=== PATIENT | male | born 1970 | race American Indian/Alaskan Native ===

== ENCOUNTER 2016-11-01 13:12 | Emergency (ER) | payer OTHER ==
[2016-11-01 13:13] VITALS: BMI 23.3
[2016-11-01 13:20] VITALS: BP 144/83; PULSE 68; RESP 18; TEMP 98.7; O2SAT 99
[2016-11-01] MEDS ORDERED: Lidocaine 1% Inj (20ml) ONE (13:42)
[2016-11-01] MEDS ORDERED: Lidocaine 2% w Epi 1:100,000 Inj IJ STA (13:52)
[2016-11-01] MEDS ORDERED: Lidocaine 1% (10 ml) Inj INFIL STA (13:52)
--- NOTE | 2016-11-01 14:34 | ED PDOC ---
HPI: Skin/Bite Injury Time Seen by Provider: 11/01/16 13:19 Chief Complaint (Nursing): Abnormal Skin Integrity Chief Complaint (Provider): Right eyebrow laceration - Punched in face History Per: Patient History/Exam Limitations: no limitations Onset/Duration Of Symptoms: Mins Current Symptoms Are (Timing): Still Present Quality Of Symptoms: Painful Severity: Mild Pain Scale Rating Of: 2 Additional Complaint(s): No LOC. No N/V. Tetanus 11/2015 Past Medical History Reviewed: Historical Data, Nursing Documentation, Vital Signs Vital Signs: Last Vital Signs Temp 98.7 F 11/01/16 13:17 Pulse 68 11/01/16 13:17 Resp 18 11/01/16 13:17 BP 144/83 11/01/16 13:17 Pulse Ox 99 11/01/16 13:17 - Medical History PMH: Anxiety, Arthritis Denies: HIV, Chronic Kidney Disease - Surgical History Surgical History: No Surg Hx - Family History Family History: States: Unknown Family Hx - Living Arrangements Living Arrangements: With Family - Social History Current smoker - smoking cessation education provided: No Alcohol: Occasional Drugs: Opiates, Prescription medications (Benzos) - Immunization History Hx Tetanus Toxoid Vaccination: No - Home Medications Home Medications: Ambulatory Orders Medication Instructions Recorded Naproxen [Naprosyn] 1 tab PO BID PRN #60 tab 11/20/15 traMADol [Ultram] 25 mg PO BID PRN #10 tab 11/20/15 - Allergies Allergies/Adverse Reactions: Allergies Allergy/AdvReac Type Severity Reaction Status Date / Time No Known Allergies Allergy Verified 11/23/15 11:34 Review of Systems ROS Statement: Except As Marked, All Systems Reviewed And Found Negative Constitutional: Negative for: Fever, Chills Skin: Positive for: Other (Left eyebrow laceration) Psych: Positive for: Anxiety. Negative for: Depression, Psychosis Physical Exam - Reviewed Nursing Documentation Reviewed: Yes Vital Signs Reviewed: Yes - Physical Exam Appears: Positive for: Well, Non-toxic, No Acute Distress Head Exam: Positive for: ATRAUMATIC, NORMAL INSPECTION, NORMOCEPHALIC Skin: Positive for: Warm. Negative for: Normal Color (5cm, jagged right eyebrow ) Eye Exam: Positive for: Normal appearance, EOMI, PERRL ENT: Positive for: Normal ENT Inspection Neck: Positive for: Normal, Painless ROM Cardiovascular/Chest: Positive for: Regular Rate, Rhythm Respiratory: Positive for: CNT, Normal Breath Sounds Gastrointestinal/Abdominal: Positive for: Normal Exam, Bowel Sounds, Soft Back: Positive for: Normal Inspection Extremity: Positive for: Normal ROM Neurologic/Psych: Positive for: Alert, Oriented - ECG O2 Sat by Pulse Oximetry: 99 Pulse Ox Interpretation: Normal Medical Decision Making Medical Decision Making: Pt aslo feels anxious and states he has been taking ativan/xanax. Disposition - Clinical Impression Clinical Impression: Head injury, Eyebrow laceration, Anxiety - Disposition Disposition: Routine/Home Disposition Time: 14:37 Condition: GOOD Instructions: Care For Your Absorbable Stitches (ED) Forms: [employer] (Malay) Laceration - Laceration Repair Right eyebrow Wound Length (In cm): 5cm Description Of Wound: Linear (Jagged ) Anesthesia: Lidocaine 1% (2cc) Wound Examination: Irrigated With Saline, No FB With Wound Exploration, No Tendon Injury With Wound Exploration Suture Technique And Material Used: Interrupted (8), Vicryl Wound Complexity: Simple
== END 2016-11-01 15:19 ==
LOC: H.ER 13:12
DX: S01.112A Laceration without foreign body of left eyelid and periocular area, initial encounter (principal); S09.90XA Unspecified injury of head, initial encounter; Y04.0XXA Assault by unarmed brawl or fight, initial encounter; F41.9 Anxiety disorder, unspecified

== ENCOUNTER 2016-11-01 18:38 | Emergency (ER) | payer OTHER ==
[2016-11-01 18:38] VITALS: BMI 23.3
[2016-11-01 18:43] VITALS: RESP 18
--- NOTE | 2016-11-01 20:21 | ED PDOC ---
HPI: Headache Time Seen by Provider: 11/01/16 18:41 Chief Complaint (Nursing): Headache Chief Complaint (Provider): Headache History Per: Patient History/Exam Limitations: no limitations Onset/Duration Of Symptoms: Days (x 1) Current Symptoms Are (Timing): Still Present Additional Complaint(s): Trevor Melendez is a 46 y/o male in custody of the police, who was seen earlier today for a face laceration. Upon arriving at detention, patient began complaining of a headache and returns to the ED now. No other medical complaints. PMD: Unknown Past Medical History Reviewed: Historical Data, Nursing Documentation, Vital Signs Vital Signs: Last Vital Signs Temp 98.1 F 11/01/16 18:40 Pulse 66 11/01/16 18:40 Resp 18 11/01/16 18:40 BP 129/81 11/01/16 18:40 Pulse Ox 99 11/01/16 18:40 - Medical History PMH: Anxiety, Arthritis Denies: HIV, Chronic Kidney Disease - Family History Family History: States: Unknown Family Hx - Social History Current smoker - smoking cessation education provided: Yes (Light) Alcohol: < 2 Drinks/Day Drugs: Denies - Immunization History Hx Tetanus Toxoid Vaccination: No - Home Medications Home Medications: Ambulatory Orders Medication Instructions Recorded Naproxen [Naprosyn] 1 tab PO BID PRN #60 tab 11/20/15 traMADol [Ultram] 25 mg PO BID PRN #10 tab 11/20/15 - Allergies Allergies/Adverse Reactions: Allergies Allergy/AdvReac Type Severity Reaction Status Date / Time No Known Allergies Allergy Verified 11/23/15 11:34 Review of Systems ROS Statement: Except As Marked, All Systems Reviewed And Found Negative Neurological: Positive for: Headache, Dizziness Physical Exam - Reviewed Nursing Documentation Reviewed: Yes Vital Signs Reviewed: Yes - Physical Exam Appears: Positive for: Non-toxic, No Acute Distress Head Exam: Positive for: ATRAUMATIC, NORMAL INSPECTION, NORMOCEPHALIC Skin: Positive for: Normal Color, Warm, Dry Eye Exam: Positive for: EOMI, Normal appearance, PERRL Neck: Positive for: Normal, Painless ROM Cardiovascular/Chest: Positive for: Regular Rate, Rhythm. Negative for: Murmur Respiratory: Positive for: Normal Breath Sounds. Negative for: Respiratory Distress Gastrointestinal/Abdominal: Positive for: Normal Exam, Soft. Negative for: Tenderness Back: Positive for: Normal Inspection. Negative for: Vertebral Tenderness Extremity: Positive for: Normal ROM. Negative for: Pedal Edema, Deformity Neurologic/Psych: Positive for: Alert, Oriented - ECG O2 Sat by Pulse Oximetry: 99 (RA) Pulse Ox Interpretation: Normal Medical Decision Making Medical Decision Making: Time: 18:47 Impression: Headache Initial Plan: --CT Head w/o contrast Time: 20:00 CT Head: FINDINGS: Brain: No acute intracranial hemorrhage. No abnormal extra-axial fluid collection. No herniation. Patent basal cisterns. Preserved tellez-white matter differentiation. No evidence of acute ischemia. No evident intracranial mass. Ventricles: No hydrocephalus. Bones/joints: No evident acute fracture. Soft tissues: Right periorbital soft tissue contusion, incompletely imaged. Sinuses: The imaged paranasal sinuses are clear. Mastoid air cells: The imaged mastoid air cells are clear. IMPRESSION: 1. No acute intracranial findings. 2. Right periorbital soft tissue contusion, incompletely imaged. --Patient is medically stable and will be discharged into custody of police. Scribe Attestation: Documented by Padmini Schneider, acting as a scribe for Aislinn Cunningham PA-C Provider Scribe Attestation: All medical record entries made by the Scribe were at my direction and personally dictated by me. I have reviewed the chart and agree that the record accurately reflects my personal performance of the history, physical exam, medical decision making, and the department course for this patient. I have also personally directed, reviewed, and agree with the discharge instructions and disposition. Disposition - Clinical Impression Clinical Impression: Headache - Patient ED Disposition Is Patient to be Admitted: No Counseled Patient/Family Regarding: Studies Performed, Diagnosis - Disposition Disposition: Discharged/Transfer to Law Enforcement Disposition Time: 20:20 Condition: STABLE Additional Instructions: Pt is medically and psychiatrically stable for incarceration. Instructions: Acute Headache (ED)
[2016-11-01 20:38] VITALS: BP 130/78; PULSE 78; TEMP 98; O2SAT 98
--- NOTE | 2016-11-02 07:26 | CT ---
PROCEDURE: CT HEAD WITHOUT CONTRAST. HISTORY: head injury, dizziness COMPARISON: None available. TECHNIQUE: Axial computed tomography images were obtained through the head/brain without intravenous contrast. Radiation dose: Total exam DLP = 777.82 MGy-cm. This CT exam was performed using one or more of the following dose reduction techniques: Automated exposure control, adjustment of the mA and/or kV according to patient size, and/or use of iterative reconstruction technique. FINDINGS: HEMORRHAGE: No intracranial hemorrhage. BRAIN: Blood-white matter differentiation is preserved. There is no mass, mass effect or abnormal extra-axial fluid collection. VENTRICLES: The ventricles are normal in size, shape and configuration. CALVARIUM: There is no calvarial fracture or extracranial soft tissue swelling. Incompletely imaged is a right periorbital soft tissue hematoma. PARANASAL SINUSES: Predominantly clear. MASTOID AIR CELLS: Predominantly clear. OTHER FINDINGS: None. IMPRESSION: 1. No acute intracranial abnormality. 2. Right periorbital soft tissue hematoma, incompletely imaged. A preliminary report was provided by [email or web address] [facility].
== END 2016-11-01 20:38 ==
LOC: H.ER 18:38
DX: R51 Headache (principal)

== ENCOUNTER 2017-10-19 18:13 | Emergency (ER) | payer MEDICAID ==
[2017-10-19 18:13] VITALS: BMI 23.3
[2017-10-19 18:17] VITALS: RESP 18; TEMP 98
[2017-10-19] MEDS ORDERED: Dextrose 50% SYRINGE Inj (50 ml) ONE (18:36)
[2017-10-19] MEDS ORDERED: Sodium Chloride 0.9% 1,000 ML IV STA (19:00)
--- NOTE | 2017-10-19 19:10 | ED PDOC ---
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 As per EMS, pt was found staggering on the sidewalk with slurred speech. He admits to working overnight and has not yet slept, along with taking a trazadone for chronic back pain and drinking 3-4 beers. At this time, he offers no complaints, stating he would just like to sleep. As per old charts, pt has a hx of heroin use, but when asked if he used today, he denied. PMD: none provided Past Medical History Reviewed: Historical Data, Nursing Documentation, Vital Signs Vital Signs: Last Vital Signs Temp 98 F 10/19/17 18:15 Pulse 68 10/19/17 18:15 Resp 18 10/19/17 18:15 BP 117/63 10/19/17 18:15 Pulse Ox 98 10/19/17 18:15 - Medical History PMH: Anxiety, Arthritis Denies: Diabetes, Hepatitis, HIV, HTN, Chronic Kidney Disease, Seizures, Sexually Transmitted Disease - Surgical History Other surgeries: Yes: right knee in early - Family History Family History: States: Unknown Family Hx - Social History Current smoker - smoking cessation education provided: Yes (light) Alcohol: Social Drugs: Other (heroin) - Immunization History Hx Tetanus Toxoid Vaccination: No - Home Medications Home Medications: Ambulatory Orders Medication Instructions Recorded hydrOXYzine HCl [Atarax] 25 mg PO BID PRN #30 tab 08/15/17 traZODone [Desyrel] 50 mg PO HS PRN #30 tab 08/15/17 - Allergies Allergies/Adverse Reactions: Allergies Allergy/AdvReac Type Severity Reaction Status Date / Time No Known Allergies Allergy Verified 10/19/17 18:14 Review of Systems ROS Statement: Except As Marked, All Systems Reviewed And Found Negative Psych: Positive for: Other (etoh) Physical Exam - Reviewed Nursing Documentation Reviewed: Yes Vital Signs Reviewed: Yes - Physical Exam Appears: Positive for: No Acute Distress Head Exam: Positive for: ATRAUMATIC, NORMOCEPHALIC Skin: Positive for: Normal Color, Warm, Dry Eye Exam: Positive for: Normal appearance Neck: Positive for: Normal, Painless ROM, Supple Cardiovascular/Chest: Positive for: Regular Rate, Rhythm. Negative for: Murmur Respiratory: Positive for: Normal Breath Sounds. Negative for: Accessory Muscle Use, Respiratory Distress Gastrointestinal/Abdominal: Positive for: Normal Exam, Soft. Negative for: Tenderness Back: Positive for: Normal Inspection Extremity: Positive for: Normal ROM Neurologic/Psych: Positive for: Alert, Oriented (x3). Negative for: Motor/ Sensory Deficits - Laboratory Results Result Diagrams: 10/19/17 19:06 10/19/17 19:06 - ECG O2 Sat by Pulse Oximetry: 98 (RA) Pulse Ox Interpretation: Normal Medical Decision Making Medical Decision Making: Time: 1899 Initial Impression: etoh Initial Plan: --Alcohol serum --CMP --Drug screen --CBC with differential --Normal saline IV --Accucheck labs resulted and reviewed with Pt who is ambulating around ED on r-eval. Pt asking to go home. Pts in ED as well and reports she is comfortable with him leaving at this time to come home. Scribe Attestation: Documented by Kay Chacko, acting as a scribe for Chanelle Chiang PA-C. Provider Scribe Attestation: All medical record entries made by the Scribe were at my direction and personally dictated by me. I have reviewed the chart and agree that the record accurately reflects my personal performance of the history, physical exam, medical decision making, and the department course for this patient. I have also personally directed, reviewed, and agree with the discharge instructions and disposition. Disposition - Clinical Impression Clinical Impression: Alcohol ingestion - Patient ED Disposition Is Patient to be Admitted: No - Disposition Disposition: Routine/Home Disposition Time: 19:46 Condition: STABLE Instructions: Polysubstance Abuse Forms: [employer] (Polish)
[2017-10-19 19:11] LABS: BASO # 0.1 K/uL (0.0-0.2); BASO % 1.1 % (0.0-2.0); EOS # 0.1 K/uL (0.0-0.7); EOS % 2.5 % (0.0-4.0); HEMOGLOBIN 10.9 g/dL (12.0-18.0); LYMPH # 1.4 K/uL (1.0-4.3); LYMPH % 31.8 % (20.0-40.0); MEAN CELL VOLUME 83.5 fl (80.0-94.0); MEAN CORPUSCULAR HEMOGLOBIN 28.1 pg (27.0-31.0); MEAN CORPUSCULAR HGB CONC 33.7 g/dL (33.0-37.0); MEAN PLATELET VOLUME 6.6 fl (7.2-11.7); MONO # 0.4 K/uL (0.0-0.8); MONO % 9.9 % (0.0-10.0); NEUT # 2.4 K/uL (1.8-7.0); NEUT % 54.7 % (50.0-75.0); RBC 3.9 Mil/uL (4.40-5.90); RED CELL DISTRIBUTION WIDTH 14.8 % (11.5-14.5); WHITE BLOOD COUNT 4.5 K/uL (4.8-10.8)
[2017-10-19 19:22] LABS: ALB/GLOB RATIO 1.5 (1.0-2.1); ALBUMIN 4.3 g/dL (3.5-5.0); ALT/SGPT 23 U/L (21-72); AST/SGOT 27 U/L (17-59); BLOOD UREA NITROGEN 13 mg/dl (9-20); CALCIUM 8.9 mg/dL (8.4-10.2); GFR AFRICAN-AMERICAN > 60; GFR NON-AFRICAN AMERICAN > 60
[2017-10-19 20:16] LABS: BARBITURATES, UR NEGATIVE (NEGATIVE); BENZODIAZEPINES, UR POSITIVE (NEGATIVE); OPIATES, UR POSITIVE (NEGATIVE); PHENCYCLIDINE, UR POSITIVE (NEGATIVE)
[2017-10-19 20:56] VITALS: BP 118/78; PULSE 78; O2SAT 100
== END 2017-10-19 20:53 | disposition home or self-care (01) ==
LOC: H.ER 18:13
DX: F10.129 Alcohol abuse with intoxication, unspecified (principal); F17.200 Nicotine dependence, unspecified, uncomplicated; F41.9 Anxiety disorder, unspecified; F11.10 Opioid abuse, uncomplicated; M54.9 Dorsalgia, unspecified
CPT/HCPCS: 80053; 80320; 80324; 80345; 80346; 80349; 80353; 80358; 80361; 83992; 85025; 99283; J7030